=== PATIENT | female | born 1970 | race Caucasian/White ===

== ENCOUNTER 2017-10-17 06:44 | Emergency (ER) | payer BC, OTHER ==
[2017-10-17 06:52] VITALS: BP 156/105; PULSE 74; RESP 16; TEMP 97.5; O2SAT 96
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
== END 2017-10-17 07:31 | disposition home or self-care (01) ==
DX: S05.12XA Contusion of eyeball and orbital tissues, left eye, initial encounter (principal); W18.39XA Other fall on same level, initial encounter

== ENCOUNTER → 2018-12-29 | Outpatient (CLI) | payer BC | LOC: FIMAGING 07:46 ==